=== PATIENT | male | born 2000 | race Two or more races ===

== ENCOUNTER 2025-08-23 09:32 | Emergency (ER) | payer OTHER ==
[~2025-08-23] VITALS: Ht 170.2 cm; Wt 92.5 kg
[2025-08-23] MEDS ORDERED: 0.9 % SODIUM CHLORIDE 1,000 ML IV ONE (10:30)
[2025-08-23] MEDS ORDERED: DEXAMETHASONE SODIUM PHOSP/PF 10 MG/ML VIAL IV ONE (10:30)
[2025-08-23] MEDS ORDERED: DEXAMETHASONE SODIUM PHOSPHATE 4 MG/ML VIAL ONE (10:43)
[2025-08-23 11:52] LABS: BASO % 0.6 % (0.1-1.2); EOS # 0.11 (0.04-0.54); EOS % 1.1 % (0.7-7.0); LYMPH # 1.44 (1.18-3.74); LYMPH % 14.1 % (19.3-53.1); MEAN PLATELET VOLUME 10.00 fl (9.4-12.4); MONO # 0.79 (0.24-0.82); MONO % 7.8 % (4.7-12.5); NEUT # 7.77 (1.56-6.13); NEUT % 76.2 % (34.0-71.1); RED CELL DISTRIBUTION WIDTH 12.4 % (11.6-14.4)
[2025-08-23 11:56] LABS: ERYTHROCYTE SEDIMENTATION RATE 38 mm/hr (0-15)
[2025-08-23 12:21] LABS: ALT/SGPT 33.0 U/L (12-78); AST/SGOT 18.0 U/L (15-37); BILIRUBIN TOTAL 0.5 mg/dL (0.3-1.2); BUN CREA RATIO 20.0 (7.0-25.0); CREATININE SERUM 1.07 mg/dL (0.70-1.30); GFR 84.91; GLOBULINA 4.7 G/DL (2.4-3.5); GLUCOSE FASTING 101.0 mg/dL (65-100); OSMOLALITY SERUM 281.0 MOSM/KG (275-295)
[2025-08-23] MEDS ORDERED: AMOX1TAB5 PO (14:48)
[2025-08-23] MEDS ORDERED: MEDROLPACK PO (14:48)
[2025-08-23] MEDS ORDERED: PEPCID AC20 MG PO (14:48)
[2025-08-24] MEDS ORDERED: METRONIDAZOLE500 MG PO (12:39)
[2025-08-24] MEDS ORDERED: CIPRO500 MG PO (12:39)
== END 2025-08-23 15:56 | disposition home or self-care (01) ==
LOC: ER 09:33
PROVIDERS: General Practice
DX: R22.1 Localized swelling, mass and lump, neck (principal)
CPT/HCPCS: 36415; 70491; 96365; 99284; J1100; J7030; Q9965

== ENCOUNTER 2025-08-24 03:57 | Emergency (ER) | payer OTHER ==
[~2025-08-24] VITALS: Ht 170.2 cm; Wt 92.5 kg
[~2025-08-24 03:57] MED LIST: AMOX1TAB5 PO; MEDROLPACK PO; PEPCID AC20 MG PO
[2025-08-24] MEDS ORDERED: ONDANSETRON HCL 2 MG/ML VIAL IV ONE (07:00)
[2025-08-24] MEDS ORDERED: 0.9 % SODIUM CHLORIDE 1,000 ML IV ONE (07:00)
[2025-08-24] MEDS ORDERED: ONDANSETRON HCL 2 MG/ML VIAL ONE (07:53)
[2025-08-24] MEDS ORDERED: FAMOTIDINE/PF 20 MG/2 ML VIAL ONE (08:30)
[2025-08-24 08:53] VITALS: BP 108/63; O2SAT 100
[2025-08-24 08:56] LABS: BASO % 0.4 % (0.1-1.2); EOS # 0.00 (0.04-0.54); EOS % 0.0 % (0.7-7.0); LYMPH # 0.35 (1.18-3.74); LYMPH % 2.1 % (19.3-53.1); MEAN PLATELET VOLUME 10.40 fl (9.4-12.4); MONO # 0.70 (0.24-0.82); MONO % 4.3 % (4.7-12.5); NEUT # 15.12 (1.56-6.13); NEUT % 92.8 % (34.0-71.1); RED CELL DISTRIBUTION WIDTH 12.5 % (11.6-14.4)
[2025-08-24] MEDS ORDERED: FAMOTIDINE/PF 20 MG/2 ML VIAL IV ONE (09:00)
[2025-08-24 09:28] LABS: ALT/SGPT 36.0 U/L (12-78); AST/SGOT 20.0 U/L (15-37); BILIRUBIN TOTAL 0.61 mg/dL (0.3-1.2); BUN CREA RATIO 16.0 (7.0-25.0); CREATININE SERUM 1.47 mg/dL (0.70-1.30); GFR 58.85; GLOBULINA 5.0 G/DL (2.4-3.5); GLUCOSE FASTING 135.0 mg/dL (65-100); OSMOLALITY SERUM 284.0 MOSM/KG (275-295)
[2025-08-24] MEDS ORDERED: CIPROFLOXACIN IN 5 % DEXTROSE 400 MG/200 ML PIGGYBAG IV ONE (11:28)
[2025-08-24] MEDS ORDERED: METRONIDAZOLE/SODIUM CHLORIDE 500 MG/100 ML PIGGYBACK IV ONE (11:28)
[2025-08-24] MEDS ORDERED: CIPROFLOXACIN IN 5 % DEXTROSE 400 MG/200 ML PIGGYBAG IV STA (12:10)
[2025-08-24] MEDS ORDERED: METRONIDAZOLE/SODIUM CHLORIDE 500 MG/100 ML PIGGYBACK IV STA (12:10)
[2025-08-24] MEDS ORDERED: METRONIDAZOLE500 MG PO (12:39)
[2025-08-24] MEDS ORDERED: CIPRO500 MG PO (12:39)
== END 2025-08-24 14:10 | disposition home or self-care (01) ==
LOC: ER 03:57
PROVIDERS: Preventive Medicine Public Health & General Preventive Medicine
DX: K52.9 Noninfective gastroenteritis and colitis, unspecified (principal); R11.10 Vomiting, unspecified; R10.9 Unspecified abdominal pain
CPT/HCPCS: 36415; 96365; 96366; 99282; J0744; J2405; J3490 ×2; J7030